=== PATIENT | female | born 1990 | race Caucasian/White ===

== ENCOUNTER 2017-05-27 19:43 | Inpatient (IN) | payer MEDICAID, OTHER ==
[2017-05-27] MEDS ORDERED: Sodium Chloride 0.9% 1,000 ML IV STA ×2 (20:00→20:34)
[2017-05-27] MEDS ORDERED: Azithromycin 500MG/NS 250ml 500 MG/250 ML BAG IVPB STA (20:02)
[2017-05-27] MEDS ORDERED: cefTRIAXone 1 gm 1 GM/100 ML BAG IVPB STA (20:05)
--- NOTE | 2017-05-27 20:05 | ED PDOC ---
Arrival/HPI <Henry Hatfield - Last Filed: 05/27/17 21:07> <Darrick Patterson - Last Filed: 05/27/17 23:03> - General Chief Complaint: Shortness Of Breath Time Seen by Provider: 05/27/17 19:45 - History of Present Illness Narrative History of Present Illness (Text): CC: shortness of breath, cough, fever x 1wk This patient is a 26yo F w/ no PMD who is coming to the Emergency department w/ chest pain, shortness of breath, cough with productive sputum with sick contacts in her family with a cough as well, for one week. The patient states she vomited one time last night after she ate, but has had no diarrhea. She has substernal chest pain, with cough, that does not radiate anywhere. This has never happened to her before. She has not traveled anywhere recently, no long flights/bus rides, and has no history of DVT/PE. She takes no medication. The last time she saw a doctor was when she gave last november. Past medical history: denies Meds: Denies FamHx: Father with diabetes; denies cancer/DVT/family hx of clots Allergies: Denies Surg Hx: 3 C-Sections; no adverse events with anesthesia Social: Lives at home with three children, does not work, does not smoke/drink/ no illicit drugs (Darrick Patterson) Past Medical History - Psychiatric Hx Substance Use: No - Surgical History Hx Section: Yes (X3) <Darrick Patterson - Last Filed: 05/27/17 23:03> Family/Social History - Physician Review Nursing Documentation Reviewed: Yes Family/Social History: No Known Family HX Smoking Status: Never Smoked Hx Alcohol Use: No Hx Substance Use: No <Darrick Patterson - Last Filed: 05/27/17 23:03> Allergies/Home Meds <Henry Hatfield - Last Filed: 05/27/17 21:07> <Darrick Patterson - Last Filed: 05/27/17 23:03> Allergies/Adverse Reactions: Allergies No Known Allergies Allergy (Verified 05/27/17 19:50) Home Medications: Home Meds Medication Instructions Recorded Confirmed No Known Home Med 05/27/17 05/27/17 Review of Systems - Review of Systems Systems not reviewed;Unavailable: Unstable Vital Signs Constitutional: Fatigue Eyes: absent: Vision Changes ENT: absent: Hearing Changes Respiratory: SOB, Cough, Sputum. absent: Wheezing Cardiovascular: Chest Pain. absent: Palpitations, Edema, Calf Pain Gastrointestinal: absent: Abdominal Pain, Stool Changes Genitourinary Female: absent: Dysuria, Frequency, Hematuria Musculoskeletal: absent: Arthralgias, Back Pain Skin: absent: Rash, Pruritis Neurological: absent: Headache, Dizziness Endocrine: absent: Diaphoresis Hemo/Lymphatic: absent: Adenopathy Psychiatric: absent: Anxiety, Depression <Darrick Patterson - Last Filed: 05/27/17 23:03> Physical Exam Temperature: Febrile Blood Pressure: Normal Pulse: Tachycardic Respiratory Rate: Normal Appearance: Positive for: Non-Toxic, Ill-Appearing Pain Distress: None Mental Status: Positive for: Alert and Oriented X 3 - Systems Exam Pupils: Present: PERRL Extroacular Muscles: Present: EOMI Conjunctiva: Present: Normal Mouth: Present: Moist Mucous Membranes Neck: Present: Normal Range of Motion Respiratory/Chest: Present: Rales. No: Clear to Auscultation Cardiovascular: Present: Tachycardic. No: Murmurs Abdomen: Present: Distention. No: Tenderness Back: No: CVA Tenderness Upper Extremity: Present: Normal Inspection. No: Cyanosis, Edema Lower Extremity: Present: Normal Inspection. No: Edema Neurological: Present: GCS=15, CN II-XII Intact Skin: Present: Warm, Dry Psychiatric: Present: Alert, Oriented x 3 <Darrick Patterson - Last Filed: 05/27/17 23:03> Vital Signs Temp Pulse Resp BP Pulse Ox 05/27/17 22:14 98.1 F 116 H 22 117/68 97 05/27/17 21:09 101.9 F H 05/27/17 21:05 101.9 F H 115 H 22 125/75 99 05/27/17 20:10 20 98 05/27/17 20:09 103.0 F H 05/27/17 19:50 103 F H 130 H 25 H 132/79 94 L Medical Decision Making - Lab Interpretations I have reviewed the lab results: Yes - EKG Interpretation Interpreted by ED Physician: Yes Type: 12 lead EKG <Henry Hatfield - Last Filed: 05/27/17 21:07> <Darrick Patterson - Last Filed: 05/27/17 23:03> ED Course and Treatment: Impression: Pt seen and evaluated with medical transcription radiology. Pt presented for chest pain, shortness of breath, productive cough, and 1 episode of vomiting. Aware and agree with HPI, clinical findings, plan, and management. Plan: -- CTA Chest -- EKG -- CXR -- Labs, VBG, D-dimer, blood cultures, rapid flu -- IV fluids -- Reassess and disposition (Henry Hatfield) 26yo F w/ fevers/cough/shortness of breath x1wk DD: PNA vs PE vs URI Plan: CBC, CMP, Blood Cult, VBG Lactate, Chest CT PE protocol, D-dimer -SIRS 3/4, fever, tachypneic, HR -give 1g Ceftriaxone, 500mg Azithro -1L NS given, BP stable -Tylenol for fever control EKG shows sinus tach w/ non specific ST/T wave changes; no previous to compare Dispo and reassess 05/27/17 20:11 CBC w/ neutrophilia, no elevated WBC Anemia, hgb 10.1, no obvious signs of bleeding K 3.2; repleted with 40Meq PO Lactate 0.8 Pending PE chest 05/27/17 20:26 Chest portable shows RLL infiltrate Pt meets sepsis criteria; protocol already in place (fever, HR, RR, RLL infiltrate) Still pending PE Protocol Chest 05/27/17 20:41 D-Dimer 400 CT Chest Still pending 05/27/17 22:44 Ct Chest still pending fever has resolved with tylenol patient is more comfortable on reassesment remains tachycardic/tachypneic 05/27/17 22:59 Will admit the patient for PNA Negative for PE Borderline mediastinal lymphadenopathy. The largest lymph node is identified within the right paratracheal position measuring 10 mm in short axis dimension. A rounded focus of soft tissue attenuation is identified within the right breast measuring 23 mm in greatest dimension Findings within the bilateral pulmonary parenchyma suggesting an infectious/ inflammatory etiology, without focal infiltrate. 05/27/17 23:03 Spoke to medical transcription radiology will admit patient to hospitalist service (Darrick Patterson) - Lab Interpretations Lab Results: 05/27/17 20:00 05/27/17 20:00 Lab Results 05/27/17 20:28: Influenza Typ A,B (EIA) Negative for flu a/b 05/27/17 20:00: D-Dimer, Quantitative 400 H 05/27/17 20:00: Sodium 140, Chloride 103, Potassium 3.2 L, Carbon Dioxide 25, Anion Gap 15, BUN 11, Creatinine 0.7, Est GFR ( Amer) > 60, Est GFR (Non- Af Amer) > 60, Random Glucose 98, Calcium 8.9, Total Bilirubin 0.4, AST 50 H, ALT 54, Alkaline Phosphatase 79, Total Protein 8.0, Albumin 4.2, Globulin 3.9, Albumin/Globulin Ratio 1.1 05/27/17 20:00: pO2 37, VBG pH 7.45 H, VBG pCO2 41.0, VBG HCO3 28.5 H, VBG Total CO2 29.8 H, VBG O2 Sat (Calc) 72.6 H, VBG Base Excess 4.1 H, VBG Potassium 3.2 L, Sodium 138.0, Chloride 104.0, Glucose 95, Lactate 0.8, FiO2 21.0, Venous Blood Potassium 3.2 L 05/27/17 20:00: WBC 9.9, RBC 4.76, Hgb 10.7 L, Hct 33.5 L, MCV 70.4 L, MCH 22.5 L, MCHC 31.9, RDW 15.5 H, Plt Count 228, MPV 10.3, Gran % 73.6 H, Lymph % (Auto ) 16.9 L, Nash % (Auto) 4.8, Eos % (Auto) 4.4, Baso % (Auto) 0.3, Gran # 7.30 H , Lymph # 1.7, Nash # 0.5, Eos # 0.4, Baso # 0.03 - RAD Interpretation Radiology Orders: 05/27/17 19:59 ANGIO CHEST PE PROTOCOL [CT] Stat 05/27/17 20:19 CHEST PORTABLE [RAD] Stat - Medication Orders Current Medication Orders: Discontinued Medications Acetaminophen (Tylenol 325mg Tab) 975 mg PO STAT STA Stop: 05/27/17 20:00 Last Admin: 05/27/17 20:09 Dose: 975 mg MAR Pain/Vitals Document 05/27/17 20:09 YP (Rec: 05/27/17 20:09 YP [id number]) Pain Reassessment Is This A Pain ReAssessment? No Sleep Is patient sleeping during reassessment? No Presence of Pain Presence of Pain Yes Vitals Temperature (97.6 F-99.6 F) 103.0 F Temperature Source Oral Re-Assess: MAR Pain/Vitals Document 05/27/17 21:09 YP (Rec: 05/27/17 21:12 YP [id number]) Vitals Temperature (97.6 F-99.6 F) 101.9 F Temperature Source Oral Sodium Chloride (Sodium Chloride 0.9%) 1,000 mls @ 999 mls/hr IV .Q1H1M STA Stop: 05/27/17 21:00 Last Admin: 05/27/17 20:03 Dose: 999 mls/hr eMAR Start Stop Document 05/27/17 20:03 SE (Rec: 05/27/17 20:03 [facility] [id number] Intravenous Solution Start Date 05/27/17 Start Time 20:03 Azithromycin (Zithromax 500mg In Ns) 500 mg in 250 mls @ 167 mls/hr IVPB STAT STA PRN Reason: Protocol Stop: 05/27/17 21:31 Last Admin: 05/27/17 21:12 Dose: 167 mls/hr eMAR Start Stop Document 05/27/17 21:12 YP (Rec: 05/27/17 21:12 YP [id number]) Intravenous Solution Start Date 05/27/17 Start Time 21:12 End Date 05/27/17 End time 22:42 Total Infusion Time 90 Ceftriaxone Sodium (Rocephin 1 Gram Ivpb) 1 gm in 100 mls @ 200 mls/hr IVPB STAT STA PRN Reason: Protocol Stop: 05/27/17 20:34 Last Admin: 05/27/17 20:33 Dose: 200 mls/hr eMAR Start Stop Document 05/27/17 20:33 YP (Rec: 05/27/17 20:33 YP [id number]) Intravenous Solution Start Date 05/27/17 Start Time 20:33 End Date 05/27/17 End time 21:03 Total Infusion Time 30 Sodium Chloride (Sodium Chloride 0.9%) 1,000 mls @ 999 mls/hr IV .Q1H1M STA Stop: 05/27/17 21:34 Last Admin: 05/27/17 20:47 Dose: 999 mls/hr eMAR Start Stop Document 05/27/17 20:47 OCS (Rec: 05/27/17 20:47 OCS [id number]) Intravenous Solution Start Date 05/27/17 Start Time 20:47 Potassium Chloride (K-Dur 20 Meq Er Tab) 40 meq PO STAT STA Stop: 05/27/17 20:16 Last Admin: 05/27/17 20:29 Dose: 40 meq Disposition/Present on Arrival <Henry Hatfield - Last Filed: 05/27/17 21:07> - Present on Arrival Any Indicators Present on Arrival: Yes History of DVT/PE: No History of Uncontrolled Diabetes: No Urinary Catheter: No History of Decub. Ulcer: No History Surgical Site Infection Following: None - Disposition Have Diagnosis and Disposition been Completed?: Yes Disposition Time: 23:03 Patient Plan: Admission <Darrick Patterson - Last Filed: 05/27/17 23:03> - Disposition Diagnosis: Pneumonia Disposition: HOSPITALIZED Condition: FAIR Referrals: PCP,NO [Primary Care Provider] - Follow up with primary Forms: [employer] ([place])
[2017-05-27 20:08] LABS: VENOUS BLOOD GAS BASE EXCESS 4.1 mmol/L (0.0-2.0); VENOUS BLOOD PH 7.45 (7.32-7.43)
[2017-05-27 20:09] LABS: BASO # 0.03 K/mm3 (0.0-2.0); BASO % 0.3 % (0.0-3.0); EOS # 0.4 (0.0-0.7); EOS % 4.4 % (1.5-5.0); GRAN # 7.3 (1.4-6.5); GRAN % 73.6 % (50.0-68.0); HEMATOCRIT 33.5 % (36.0-48.0); LYMPH # 1.7 (1.2-3.4); LYMPH % 16.9 % (22.0-35.0); MEAN CELL VOLUME 70.4 fl (80.0-105.0); MEAN CORPUSCULAR HEMOGLOBIN 22.5 pg (25.0-35.0); MEAN CORPUSCULAR HGB CONC 31.9 g/dl (31.0-37.0); MEAN PLATELET VOLUME 10.3 fl (7.0-11.0); MONO # 0.5 (0.1-0.6); MONO % 4.8 % (1.0-6.0); RED CELL DISTRIBUTION WIDTH 15.5 % (11.5-14.5); WHITE BLOOD COUNT 9.9 10^3/ul (4.5-11.0)
[2017-05-27] MEDS ORDERED: Potassium Chloride 20 mEq ER Tab PO STA (20:15)
[2017-05-27 20:18] LABS: ALB/GLOB RATIO 1.1 (1.1-1.8); ALKALINE PHOSPHATASE 79 U/L (38-126); ALT/SGPT 54 U/L (7-56); AST/SGOT 50 U/L (14-36); BILIRUBIN,TOTAL 0.4 mg/dL (0.2-1.3); BLOOD UREA NITROGEN 11 mg/dL (7-21); CALCIUM 8.9 mg/dL (8.4-10.5); CARBON DIOXIDE 25 mmol/L (21-33); CHLORIDE 103 mmol/L (98-107); GFR AFRICAN-AMERICAN > 60; GLUCOSE,RANDOM 98 mg/dL (70-110); POTASSIUM 3.2 mmol/L (3.6-5.0); SODIUM 140 mmol/L (132-148)
[2017-05-27] MEDS ORDERED: Iodixanol 320 MG/ML 100 ML BOTTLE IV ONE (20:37)
--- NOTE | 2017-05-27 22:57 | CT ---
EXAM: CT Angiography Chest With Intravenous Contrast CLINICAL HISTORY: 26 years old, female; Pain; Chest pain; Additional info: Chest pain SOB TECHNIQUE: Axial computed tomographic angiography images of the chest with intravenous contrast using pulmonary embolism protocol. All CT scans at this facility use one or more dose reduction techniques, viz.: automated exposure control; ma/kV adjustment per patient size (including targeted exams where dose is matched to indication; i.e. head); or iterative reconstruction technique. MIP reconstructed images were created and reviewed. Coronal and sagittal reformatted images were created and reviewed. CONTRAST: 91 mL of VISIPAQUE administered intravenously. COMPARISON: None. Examination is markedly limited secondary to poor bolus timing. FINDINGS: Pulmonary arteries: No large central pulmonary embolism. Aorta: No thoracic aortic aneurysm. Lungs: No mass. Patchy central tree in bud opacification, findings consistent with an infectious/inflammatory etiology. Pleural spaces: No significant effusion. No pneumothorax. Heart: No cardiomegaly. No significant pericardial effusion. No evidence of right heart dysfunction. Bones: No acute fracture. Lymph nodes: Borderline mediastinal lymphadenopathy. The largest lymph node is identified within the right paratracheal position measuring 10 mm in short axis dimension. A rounded focus of soft tissue attenuation is identified within the right breast measuring 23 mm in greatest dimension, for which non-emergent followup with breast ultrasound is recommended, if not already performed. IMPRESSION: No pulmonary embolism. Findings within the bilateral pulmonary parenchyma suggesting an infectious/inflammatory etiology, without focal infiltrate. Findings within the right breast for which nonemergent followup with breast ultrasound is recommended, if not already performed.
[2017-05-28] MEDS ORDERED: Albuterol-Ipratrop 3 mg / 0.5 (3 ml) UD IH STA (00:15)
[2017-05-28] MEDS: Sodium Chloride 0.9% 1,000 ML IV SCH ×3 (00:24→22:25)
--- NOTE | 2017-05-28 00:26 | CP.PCM.HP ---
History of Present Illness - History of Present Illness History of Present Illness: CC: Cough, fevers, and chills This is a 26 year old female with no past medical history who presents to the emergency department complaining of fevers, chills, and productive cough for the past week. The patient reports having one recent contact in the home with her child. The patient reports taking advil and Theraflu but denies any improvement in the symptoms. The patient also reports one episode of non- bilious, non-bloody vomit in conjunction with her symptoms. The patient also reports pleuritic chest pain. The patient denies any abdominal pain, constipation, diarrhea, numbness or tingling in the hands or feet, headache, lightheadedness, dizziness, changes in vision, syncopal episodes, or any other complaints. PMD: None Past medical history: See HPI Medications:None Past surgical history: C-sections (x3), Appendectomy Social history: Patient denies smoking, alcohol consumption or illicit drug use. Family history: Mom(D.M. AND hypertension), Dad (D.M.) Present on Admission - Present on Admission Any Indicators Present on Admission: No Review of Systems - Constitutional Constitutional: Chills, Fever, Lethargy. absent: Daytime Sleepiness, Excessive Sweating, Increased Appetite, Night Sweats, Weight Loss, Weakness - EENT Eyes: absent: Blurred Vision, Change in Vision, Discharge, Dry Eye Ears: absent: Decreased Hearing, Ear Discharge, Dizziness Nose/Mouth/Throat: absent: Nasal Trauma, Nose Pain, Mouth Pain, Sore Throat, Facial Pain, Neck Pain, Neck Mass - Cardiovascular Cardiovascular: absent: Chest Pain at Rest, Diaphoresis, Dyspnea, Irregular Heart Rhythm, Leg Edema, Palpitations, Syncope - Respiratory Respiratory: Cough, Excessive Mucous Production, Pain with Coughing. absent: Hemoptysis, Dyspnea on Exertion, Wheezing - Gastrointestinal Gastrointestinal: Nausea. absent: Abdominal Pain, Bloating, Diarrhea, Melena - Musculoskeletal Musculoskeletal: absent: Abnormal Gait, Muscle Cramps, Muscle Weakness, Myalgias , Neck Pain, Numbness - Integumentary Integumentary: Dry Skin. absent: Changing Lesions, Furuncle, New Lesions, Sores , Swelling, Unusual Bruising, Wounds - Neurological Neurological: absent: Abnormal Hearing, Disequilibrium, Dizziness, Numbness, Headaches, Paresthesias, Vertigo, Weakness - Psychiatric Psychiatric: absent: Change in Appetite, Confusion, Depression, Hopelessness, Memory Loss, Mood Swings, Panic Attacks - Endocrine Endocrine: absent: Cold Intolorance, Excessive Sweating, Flushing, Polydipsia, Polyphagia, Polyuria Past Patient History - Past Social History Smoking Status: Never Smoked - PSYCHIATRIC Hx Substance Use: No - SURGICAL HISTORY Hx Section: Yes (X3) Meds Allergies/Adverse Reactions: Allergies Allergy/AdvReac Type Severity Reaction Status Date / Time No Known Allergies Allergy Verified 05/27/17 19:50 Physical Exam - Head Exam Head Exam: ATRAUMATIC, NORMAL INSPECTION, NORMOCEPHALIC - Eye Exam Eye Exam: EOMI, Normal appearance, PERRL. absent: Periorbital tenderness Pupil Exam: NORMAL ACCOMODATION, PERRL. absent: Irregular, Unequal - ENT Exam ENT Exam: Mucous Membranes Moist, Normal Exam. absent: Normal Oropharynx, TM's Normal Bilaterally - Neck Exam Neck exam: Positive for: Normal Inspection. Negative for: Lymphadenopathy, Meningismus, Thyromegaly - Respiratory Exam Respiratory Exam: Decreased Breath Sounds. absent: Prolonged Expiratory Phase, Rales, Respiratory Distress, Stridor - Cardiovascular Exam Cardiovascular Exam: REGULAR RHYTHM, +S1, +S2. absent: Gallop, Rubs - GI/Abdominal Exam GI & Abdominal Exam: Normal Bowel Sounds, Soft. absent: Diminished Bowel Sounds , Distended, Organomegaly, Tenderness - Extremities Exam Extremities exam: Positive for: full ROM, normal inspection. Negative for: joint swelling, pedal edema, tenderness - Back Exam Back exam: NORMAL INSPECTION. absent: CVA tenderness (L), CVA tenderness (R), paraspinal tenderness - Neurological Exam Neurological exam: Alert, CN II-XII Intact, Normal Gait, Oriented x3 - Psychiatric Exam Psychiatric exam: Normal Affect, Normal Mood - Skin Skin Exam: Dry, Intact, Normal Color Results - Vital Signs Recent Vital Signs: Last Vital Signs Temp 98.1 F 05/27/17 22:14 Pulse 109 H 05/27/17 23:19 Resp 20 05/27/17 23:19 BP 112/71 05/27/17 23:19 Pulse Ox 99 05/27/17 23:19 - Labs Result Diagrams: 05/28/17 07:00 05/28/17 07:00 Labs: Laboratory Results - last 24 hr 05/27/17 05/27/17 05/27/17 20:00 20:00 20:00 WBC 9.9 RBC 4.76 Hgb 10.7 L Hct 33.5 L MCV 70.4 L MCH 22.5 L MCHC 31.9 RDW 15.5 H Plt Count 228 MPV 10.3 Gran % 73.6 H Lymph % (Auto) 16.9 L [place] % (Auto) 4.8 Eos % (Auto) 4.4 Baso % (Auto) 0.3 Gran # 7.30 H Lymph # 1.7 [place] # 0.5 Eos # 0.4 Baso # 0.03 D-Dimer, Quantitative pO2 37 VBG pH 7.45 H VBG pCO2 41.0 VBG HCO3 28.5 H VBG Total CO2 29.8 H VBG O2 Sat (Calc) 72.6 H VBG Base Excess 4.1 H VBG Potassium 3.2 L Sodium 138.0 140 Chloride 104.0 103 Glucose 95 Lactate 0.8 FiO2 21.0 Potassium 3.2 L Carbon Dioxide 25 Anion Gap 15 BUN 11 Creatinine 0.7 Est GFR ( Amer) > 60 Est GFR (Non-Af Amer) > 60 Random Glucose 98 Calcium 8.9 Total Bilirubin 0.4 AST 50 H ALT 54 Alkaline Phosphatase 79 Total Protein 8.0 Albumin 4.2 Globulin 3.9 Albumin/Globulin Ratio 1.1 Venous Blood Potassium 3.2 L Influenza Typ A,B (EIA) 05/27/17 05/27/17 20:00 20:28 WBC RBC Hgb Hct MCV MCH MCHC RDW Plt Count MPV Gran % Lymph % (Auto) [place] % (Auto) Eos % (Auto) Baso % (Auto) Gran # Lymph # [place] # Eos # Baso # D-Dimer, Quantitative 400 H pO2 VBG pH VBG pCO2 VBG HCO3 VBG Total CO2 VBG O2 Sat (Calc) VBG Base Excess VBG Potassium Sodium Chloride Glucose Lactate FiO2 Potassium Carbon Dioxide Anion Gap BUN Creatinine Est GFR ( Amer) Est GFR (Non-Af Amer) Random Glucose Calcium Total Bilirubin AST ALT Alkaline Phosphatase Total Protein Albumin Globulin Albumin/Globulin Ratio Venous Blood Potassium Influenza Typ A,B (EIA) Negative for flu a/b Assessment & Plan - Assessment and Plan (Free Text) Assessment: This is a 26 year old female with no past medical history who is being admitted for CAP. Plan: 1. Community acquired pneumonia( in the setting of SIRS)( versus r/o P.E.) -CXR showed right lower infiltrate -Chest ct ordered after D-dimer result(400) and showed borderline mediastinal lymphadenopathy. Largest lymph node is identified within the right para- tracheal position measuring 10mm in short axis dimension. A rounded focus of soft tissue attenuation identified within the right breast measuring 23mm in greatest dimension. Findings within the bilateral pulmonary parenchyma suggesting an infectious/inflammatory etiology without focal infiltrate. -Patient given 1 gram of Ceftriaxone and 500mg of Azithromycin in the E.D. -Tmax of 103F. Patient given Tylenol in the E.D. Patient a-febrile. -1L NS give in in the E.D. 1 L NS ordered at 125 ml/hr. -Duonebs. -Sputum cultures ordered. Will f/u with results. Blood cultures ordered. Will f /u with results. -Procalcitonin ordered. Will f/u with results. -Pulmonary consulted. Will f/u with rec's. -ID consulted. Will f/u with rec's. 2.Microcytic hypochromic anemia -Per patient history family recently gave to her 3rd child via . -MCV 70.4 upon admission. Hemoglobin 10.7 upon admission. RDW 15.5 upon admission. -Anemia workup ordered. Will f/u with rec's. -Will continue to monitor closely. 3.Hypokalemia -K 3.2 upon admission. Mg and Phos ordered. Will f/u with results. -Will replete as needed. Will closely monitor with serial CMP's. GI ppx -Protonix DVT/PE PPX -Heparin
[2017-05-28] MEDS: Albuterol-Ipratrop 3 mg / 0.5 (3 ml) UD IH SCH ×5 (01:20→20:08)
[2017-05-28 01:27] LABS: ARTERIAL BLOOD GAS HCO3 21.6 mmol/L (21-28); ARTERIAL BLOOD GAS PH 7.41 (7.35-7.45)
[2017-05-28 07:05] VITALS: BMI 29.2
[2017-05-28 07:33] LABS: BASO # 0.03 K/mm3 (0.0-2.0); BASO % 0.3 % (0.0-3.0); EOS # 0.6 (0.0-0.7); EOS % 5.5 % (1.5-5.0); GRAN # 7.09 (1.4-6.5); GRAN % 71.1 % (50.0-68.0); HEMATOCRIT 32.8 % (36.0-48.0); LYMPH # 1.8 (1.2-3.4); LYMPH % 18.4 % (22.0-35.0); MEAN CELL VOLUME 71.1 fl (80.0-105.0); MEAN CORPUSCULAR HEMOGLOBIN 22.3 pg (25.0-35.0); MEAN CORPUSCULAR HGB CONC 31.4 g/dl (31.0-37.0); MEAN PLATELET VOLUME 10.2 fl (7.0-11.0); MONO # 0.5 (0.1-0.6); MONO % 4.7 % (1.0-6.0); RED CELL DISTRIBUTION WIDTH 15.9 % (11.5-14.5)
[2017-05-28 08:03] LABS: IRON 13 ug/dL (45-180)
[2017-05-28 08:06] LABS: ALKALINE PHOSPHATASE 66 U/L (38-126); ALT/SGPT 47 U/L (7-56); AST/SGOT 34 U/L (14-36); BILIRUBIN,TOTAL 0.5 mg/dL (0.2-1.3); BLOOD UREA NITROGEN 6 mg/dL (7-21); CALCIUM 8.1 mg/dL (8.4-10.5); CARBON DIOXIDE 23 mmol/L (21-33); CHLORIDE 111 mmol/L (98-107); GFR AFRICAN-AMERICAN > 60; GLUCOSE,RANDOM 90 mg/dL (70-110); PHOSPHOROUS 2.7 mg/dL (2.5-4.5); POTASSIUM 3.9 mmol/L (3.6-5.0); SODIUM 144 mmol/L (132-148); TOTAL PROTEIN 7.1 g/dL (5.8-8.3)
--- NOTE | 2017-05-28 09:01 | RAD ---
HISTORY: shortness of breat CP COMPARISON: None FINDINGS: LUNGS: A right middle lobe patchy infiltrate is present PLEURA: No significant pleural effusion identified, no pneumothorax apparent. CARDIOVASCULAR: Normal. OSSEOUS STRUCTURES: No significant abnormalities. VISUALIZED UPPER ABDOMEN: Normal. OTHER FINDINGS: None. IMPRESSION: Right middle lobe patchy infiltrate
--- NOTE | 2017-05-28 09:17 | CARD ---
APPROVED REPORT EKG Measurement Heart [id number] <Conclusion> Sinus tachycardia Nonspecific ST and T wave abnormality Abnormal ECG
[2017-05-28] MEDS ORDERED: cefTRIAXone 1 gm 1 GM/100 ML BAG IVPB SCH (10:00)
[2017-05-28] MEDS: cefTRIAXone 1 gm 1 GM/100 ML BAG IVPB SCH (10:05)
[2017-05-28] MEDS: Azithromycin 500MG/NS 250ml 500 MG/250 ML BAG IVPB SCH (10:06)
--- NOTE | 2017-05-28 12:32 | CP.PCM.CON ---
History of Present Illness - History of Present Illness History of Present Illness: 26 year old female with past medical history of C-sections, S/P appendectomy came in to [facility] because of fever, chills and cough which started about a week ago. She states that her older child has cough and an ear infection. She also has associated chest pain on coughing, occasional lightheadedness when coughing, but denies nausea or diarrhea, no dysuria, no sore throat, some mild dyspnea on exertion, has generalized weakness, no abdominal pain, no dysphagia. In the ED, CXR and CT chest were done which showed some tree-in-bud opacities in the lower lobes and borderlines mediastinal adenopathy. Infectious Diseases consult is requested to further evaluate and manage. Patient was born in [place] and migrated many years ago. She does not recall getting a BCG vaccine and does not recall getting a PPD test done. Review of Systems - Review of Systems All systems: reviewed and no additional remarkable complaints except (as per HPI ) Past Patient History - Past Social History Smoking Status: Never Smoked - PSYCHIATRIC Hx Substance Use: No - SURGICAL HISTORY Hx Section: Yes (X3) Meds Allergies/Adverse Reactions: Allergies Allergy/AdvReac Type Severity Reaction Status Date / Time No Known Allergies Allergy Verified 05/27/17 19:50 - Medications Medications: Current Medications Acetaminophen (Tylenol 325mg Tab) 650 mg PO Q4 PRN PRN Reason: Fever >100.4 F Albuterol/Ipratropium (Duoneb 3 Mg/0.5 Mg (3 Ml) Ud) 3 ml IH Q6H JOY Last Admin: 05/28/17 01:20 Dose: 3 ml Heparin Sodium (Porcine) (Heparin) 5,000 units SC Q12 JOY PRN Reason: Protocol Sodium Chloride (Sodium Chloride 0.9%) 1,000 mls @ 125 mls/hr IV .Q8H JOY Last Admin: 05/28/17 00:24 Dose: 125 mls/hr Ceftriaxone Sodium (Rocephin 1 Gram Ivpb) 1 gm in 100 mls @ 100 mls/hr IVPB DAILY JOY PRN Reason: Protocol Azithromycin (Zithromax 500mg In Ns) 500 mg in 250 mls @ 167 mls/hr IVPB DAILY JOY PRN Reason: Protocol Ondansetron HCl (Zofran Inj) 4 mg IVP Q6 PRN PRN Reason: Nausea/Vomiting Pantoprazole Sodium (Protonix Inj) 40 mg IVP DAILY JOY Physical Exam - Constitutional Appears: Other (ill-appearing) - Head Exam Head Exam: NORMAL INSPECTION - ENT Exam ENT Exam: Mucous Membranes Moist - Neck Exam Neck exam: Negative for: Lymphadenopathy, Meningismus - Respiratory Exam Respiratory Exam: Rales (scattered), Wheezes (expiratory) - Cardiovascular Exam Cardiovascular Exam: +S1, +S2 - GI/Abdominal Exam GI & Abdominal Exam: Soft. absent: Tenderness Results - Vital Signs Recent Vital Signs: Last Vital Signs Temp 98.1 F 05/27/17 22:14 Pulse 96 H 05/28/17 01:23 Resp 20 05/28/17 01:23 BP 114/60 05/28/17 01:23 Pulse Ox 97 05/28/17 01:23 - Labs Result Diagrams: 05/28/17 07:00 05/28/17 07:00 Labs: Laboratory Results - last 24 hr 05/28/17 01:24 pCO2 34 L pO2 83.0 HCO3 21.6 ABG pH 7.41 ABG Total CO2 22.6 ABG O2 Saturation 97.8 ABG Base Excess -2.4 L ABG Potassium 3.3 L Sodium 143.0 Chloride 114.0 H Glucose 97 Lactate 0.4 L FiO2 21.0 Arterial Blood Potassium 3.3 L Assessment & Plan - Assessment and Plan (Free Text) Plan: Assessment Consider sepsis due to systemic viral illness with probable bronchiolitis R/O community-acquired pneumonia, R/O TB (less likely) S/P C-sections S/P appendectomy Plan Started patient on Rocephin and Zithromax pending blood cx, sputum cx, PCT, urine Legionella Ag; reviewed CT chest will get sputum AFB as well and isolate for now Discussed with Dr. Walton - started on Tamiflu, RSV tests sent will monitor clinical response and trend fever curve
--- NOTE | 2017-05-28 23:21 | CON ---
DATE: 05/28/2017 HISTORY OF PRESENT ILLNESS: The patient is seen and examined at bedside. This is 26-year-old lady without significant past medical history who presented with 3 days of malaise, fever, productive cough. Of note, she has little kids who had similar symptoms recently within one week of her presentation. No nausea, no vomiting, no diarrhea, no constipation. No weight loss or night sweats. No diabetes symptoms. PAST MEDICAL HISTORY: None. ALLERGIES: NONE. HOME MEDICATIONS: None. REVIEW OF SYSTEMS: Review of 12-organ system other than mentioned in history of present illness is negative. PHYSICAL EXAMINATION: VITAL SIGNS: Temperature 98 (yesterday on presentation T-max was 103), heart rate 91, blood pressure 112/70, respiratory rate 18, oxygen saturation 98% on room air. HEENT: Head and neck atraumatic. LUNGS: Few wheezes bilaterally. HEART: Regular rate and rhythm, S1 and S2 normal. ABDOMEN: Soft, nontender, and nondistended. MUSCULOSKELETAL: No C/C/E. NEUROLOGIC: The patient moves all extremities spontaneously. SKIN: Moist. PSYCHIATRIC: The patient is alert and oriented x3. LABORATORY DATA: WBC 10, hemoglobin 10.3, platelet count 223. Sodium 144, potassium 3.9, chloride 111, carbon dioxide 23, BUN 6, creatinine 0.6, glucose 19, AST 34, ALT 47, lactic acid 0.4. ABG showed 7.41/34/83. MEDICATION: Tylenol p.r.n., DuoNeb every 6 hours, heparin 5000 subcu q.12, ibuprofen p.r.n., Zofran p.r.n., Tamiflu, Protonix, ceftriaxone, azithromycin. CAT scan showed borderline mediastinal lymphadenopathy; however, below 1 cm. No pulmonary embolism, some areas with tree-in-bud opacities and ground-glass opacities. No distinct consolidation or bronchograms. EKG: QTc of 466, no acute ischemic changes. ASSESSMENT AND PLAN: This is a 26-year-old lady who presented with productive cough, fever, malaise, and who was found to have some tree-in-bud opacities and some ground-glass nodules and opacities on the CAT scan. Presentation suggest infectious etiology of her symptoms, to be more precise-viral origin, which in combination of radiographic signs of bronchiolitis, signs of bronchospasm on lung exam in the absence of underlying asthma diagnosis--RSV bronchiolitis is very likely diagnosis. That being said, untill more data available--such as procalcitonin, results of GS of sputum and blood culture, empiric antibiotics appear to be reasonable. As we are in the flu season, I will start tamiflu empirically as well. Even though rapid RSV is very non sensitive, it fairly specific and I will order that. Having high suspicion for viral pneumonia, I will forego steroids at present time, but continue with bronchodilators. Maintain euvolemia, euglycemia and normothermia, 02sat>90 percent. Will follow Addendum: procalcitonin less then 0.15--likely viral infection, would recommend to start peeling off abx, if ID service concur David Walton MD [facility]
[2017-05-29 01:04] LABS: BASO # 0.03 K/mm3 (0.0-2.0); BASO % 0.3 % (0.0-3.0); EOS # 0.4 (0.0-0.7); EOS % 4.8 % (1.5-5.0); GRAN # 5.9 (1.4-6.5); GRAN % 64.4 % (50.0-68.0); HEMATOCRIT 30.4 % (36.0-48.0); LYMPH # 2.4 (1.2-3.4); LYMPH % 26.4 % (22.0-35.0); MEAN CELL VOLUME 71.5 fl (80.0-105.0); MEAN CORPUSCULAR HEMOGLOBIN 21.9 pg (25.0-35.0); MEAN CORPUSCULAR HGB CONC 30.6 g/dl (31.0-37.0); MEAN PLATELET VOLUME 9.8 fl (7.0-11.0); MONO # 0.4 (0.1-0.6); MONO % 4.1 % (1.0-6.0); RED CELL DISTRIBUTION WIDTH 15.8 % (11.5-14.5); WHITE BLOOD COUNT 9.2 10^3/ul (4.5-11.0)
[2017-05-29 01:15] LABS: BLOOD UREA NITROGEN 4 mg/dL (7-21); GLUCOSE,RANDOM 94 mg/dL (70-110)
[2017-05-29 01:16] LABS: ALKALINE PHOSPHATASE 64 U/L (38-126); ALT/SGPT 48 U/L (7-56); AST/SGOT 44 U/L (14-36); BILIRUBIN,TOTAL 0.4 mg/dL (0.2-1.3); CALCIUM 8.1 mg/dL (8.4-10.5); CARBON DIOXIDE 26 mmol/L (21-33); CHLORIDE 108 mmol/L (98-107); GFR AFRICAN-AMERICAN > 60; POTASSIUM 3.8 mmol/L (3.6-5.0); SODIUM 144 mmol/L (132-148); TOTAL PROTEIN 6.9 g/dL (5.8-8.3)
[2017-05-29] MEDS: Albuterol-Ipratrop 3 mg / 0.5 (3 ml) UD IH SCH ×5 (01:38→23:31)
[2017-05-29] MEDS: Sodium Chloride 0.9% 1,000 ML IV SCH ×2 (06:44→17:53)
[2017-05-29] MEDS: cefTRIAXone 1 gm 1 GM/100 ML BAG IVPB SCH (09:30)
[2017-05-29] MEDS: Azithromycin 500MG/NS 250ml 500 MG/250 ML BAG IVPB SCH (09:31)
--- NOTE | 2017-05-29 11:24 | CP.PCM.PN ---
<Emmett Rucker - Last Filed: 05/29/17 13:58> Subjective - Date & Time of Evaluation Date of Evaluation: 05/29/17 Time of Evaluation: 06:00 - Subjective Subjective: Patient was seen and examined bedside. She denied any acute events overnight. She stated her pain from the cough had dacreased. She has also been producing less sputum and it has been clear and thinner than it was yesterday. She was able to tolerate a full liquid diet, and today she was told to have yogurt and and try a soft diet. She denied any chest pain, shortness of breath, abdominal pain, fever, chills, nausea, vomiting, or any other complaints at this time. Objective - Vital Signs/Intake and Output Vital Signs (last 24 hours): Temp Pulse Resp BP Pulse Ox 98.3 F 76 19 121/65 99 05/29/17 07:30 05/29/17 07:30 05/29/17 07:30 05/29/17 07:30 05/29/17 07:30 Intake and Output: 05/29/17 05/29/17 06:59 18:59 Intake Total 3780 Output Total 3 Balance 3777 - Medications Medications: Current Medications Acetaminophen (Tylenol 325mg Tab) 650 mg PO Q4 PRN PRN Reason: Fever >100.4 F Last Admin: 05/28/17 21:41 Dose: 650 mg Albuterol/Ipratropium (Duoneb 3 Mg/0.5 Mg (3 Ml) Ud) 3 ml IH Q6H [facility] Last Admin: 05/29/17 11:14 Dose: 3 ml Heparin Sodium (Porcine) (Heparin) 5,000 units SC Q12 JOY PRN Reason: Protocol Last Admin: 05/29/17 09:30 Dose: 5,000 units Sodium Chloride (Sodium Chloride 0.9%) 1,000 mls @ 125 mls/hr IV .Q8H JOY Last Admin: 05/29/17 06:44 Dose: 125 mls/hr Ceftriaxone Sodium (Rocephin 1 Gram Ivpb) 1 gm in 100 mls @ 100 mls/hr IVPB DAILY JOY PRN Reason: Protocol Last Admin: 05/29/17 09:30 Dose: 100 mls/hr Azithromycin (Zithromax 500mg In Ns) 500 mg in 250 mls @ 167 mls/hr IVPB DAILY JOY PRN Reason: Protocol Last Admin: 05/29/17 09:31 Dose: 167 mls/hr Ibuprofen (Motrin Tab) 400 mg PO Q6H PRN PRN Reason: Pain, moderate (4-7) Last Admin: 05/29/17 06:06 Dose: 400 mg Ondansetron HCl (Zofran Inj) 4 mg IVP Q6 PRN PRN Reason: Nausea/Vomiting Oseltamivir Phosphate (Tamiflu Cap) 75 mg PO BID JOY PRN Reason: Protocol Stop: 06/02/17 10:56 Last Admin: 05/29/17 09:33 Dose: 75 mg Pantoprazole Sodium (Protonix Inj) 40 mg IVP DAILY JOY Last Admin: 05/29/17 09:30 Dose: 40 mg - Labs Labs: 05/29/17 00:50 05/29/17 00:50 - Constitutional Appears: Non-toxic, No Acute Distress - Head Exam Head Exam: ATRAUMATIC, NORMAL INSPECTION, NORMOCEPHALIC - Eye Exam Eye Exam: EOMI, Normal appearance, PERRL - ENT Exam ENT Exam: Mucous Membranes Moist, Normal Exam - Neck Exam Neck Exam: Full ROM, Normal Inspection - Respiratory Exam Respiratory Exam: Rhonchi, NORMAL BREATHING PATTERN - Cardiovascular Exam Cardiovascular Exam: REGULAR RHYTHM, +S1, +S2 - GI/Abdominal Exam GI & Abdominal Exam: absent: Tenderness - Extremities Exam Extremities Exam: Normal Capillary Refill, Normal Inspection. absent: Pedal Edema - Neurological Exam Neurological Exam: Alert, Awake, Oriented x3 - Psychiatric Exam Psychiatric exam: Normal Affect - Skin Skin Exam: Normal Color, Warm Assessment and Plan - Assessment and Plan (Free Text) Assessment: This is a 26 year old female with no past medical history who is being admitted for possible CAP. She is being monitored and worked up. Plan: 1. Community acquired pneumonia( in the setting of SIRS)( versus r/o P.E.) -CXR showed right lower infiltrate -Chest ct ordered after D-dimer result(400) and showed borderline mediastinal lymphadenopathy. Largest lymph node is identified within the right para- tracheal position measuring 10mm in short axis dimension. A rounded focus of soft tissue attenuation identified within the right breast measuring 23mm in greatest dimension. Findings within the bilateral pulmonary parenchyma suggesting an infectious/inflammatory etiology without focal infiltrate. -Patient given 1 gram of Ceftriaxone and 500mg of Azithromycin in the E.D. -Tmax of 103F. Patient given Tylenol in the E.D. Patient a-febrile currently, T : 98.5 -1L NS give in in the E.D. 1 L NS ordered at 125 ml/hr. -Duonebs continue -Sputum cultures PENDING -Blood cultures NO GROWTH -Rapid Influenza: NEGATIVE -Legionella antigen NEGATIVE -Procalcitonin : 0.05 -Pulmonary consulted. Will f/u with recs -ID consulted. Will f/u with recs. will d/c Rocephin and continue Zithromax day 2. Obtain sputum AFB as well and isolate for now. Discussed with Dr. Walton - continue Tamiflu day 2, RSV tests sent. will monitor clinical response and trend fever curve -Follow up Sputum AFB, first negative -Follow up RSV -HIV ordered -Quantiferon ordered -Airborne Precautions -ESR: 78 -CRP 15.00 2. Microcytic hypochromic anemia -Per patient history family recently gave to her 3rd child via . -MCV 70.4 upon admission. Hemoglobin 10.7 upon admission. RDW 15.5 upon admission. Hgb 9.3 now -Anemia workup ordered -Ferritin: 48, Iron: 13 TIBC: 270 -Will continue to monitor closely. 3. Hypokalemia -K 3.2 upon admission. Mg and Phos ordered. Will f/u with results. K 3.8 now -Will replete as needed. Will closely monitor with serial CMP's. 4. GI ppx -Protonix 5. DVT/PE PPX -Heparin <Domenico Gaytan - Last Filed: 05/29/17 16:36> Objective - Vital Signs/Intake and Output Vital Signs (last 24 hours): Temp Pulse Resp BP Pulse Ox 98.3 F 76 19 121/65 99 05/29/17 07:30 05/29/17 07:30 05/29/17 07:30 05/29/17 07:30 05/29/17 07:30 Intake and Output: 05/29/17 05/29/17 06:59 18:59 Intake Total 1140 Balance 1140 - Medications Medications: Current Medications Acetaminophen (Tylenol 325mg Tab) 650 mg PO Q4 PRN PRN Reason: Fever >100.4 F Last Admin: 05/28/17 21:41 Dose: 650 mg Albuterol/Ipratropium (Duoneb 3 Mg/0.5 Mg (3 Ml) Ud) 3 ml IH Q6H [facility] Last Admin: 05/29/17 13:51 Dose: 3 ml Heparin Sodium (Porcine) (Heparin) 5,000 units SC Q12 JOY PRN Reason: Protocol Last Admin: 05/29/17 09:30 Dose: 5,000 units Sodium Chloride (Sodium Chloride 0.9%) 1,000 mls @ 125 mls/hr IV .Q8H [facility] Last Admin: 05/29/17 06:44 Dose: 125 mls/hr Azithromycin (Zithromax 500mg In Ns) 500 mg in 250 mls @ 167 mls/hr IVPB DAILY JOY PRN Reason: Protocol Last Admin: 05/29/17 09:31 Dose: 167 mls/hr Ibuprofen (Motrin Tab) 400 mg PO Q6H PRN PRN Reason: Pain, moderate (4-7) Last Admin: 05/29/17 06:06 Dose: 400 mg Ondansetron HCl (Zofran Inj) 4 mg IVP Q6 PRN PRN Reason: Nausea/Vomiting Oseltamivir Phosphate (Tamiflu Cap) 75 mg PO BID JOY PRN Reason: Protocol Stop: 06/02/17 10:56 Last Admin: 05/29/17 09:33 Dose: 75 mg Pantoprazole Sodium (Protonix Inj) 40 mg IVP DAILY [facility] Last Admin: 05/29/17 09:30 Dose: 40 mg Attending/Attestation - Attestation I have personally seen and examined this patient.: Yes I have fully participated in the care of the patient.: Yes I have reviewed all pertinent clinical information, including history, physical exam and plan: Yes Notes (Text): I have seen and examined the patient at bedside. Agree with the above note with the following additions/ exceptions: Briefly this is 26 year old female with no past medical history who was admitted 1 day ago for evaluation of cough, sputum production, pleuritic chest pain, bronchospasm, borderline mediastinal adenopathy, bud and tree appearance suggestive of bronchiolitis / CAP. Blood cultures negative. Procal low. Discussed with ID. Plan to dc rocephin and continue zithro. Influenza and legionella negative. AFB smears pending. No recent travel to [place]. No known exposure to TB. She has iron deficiency anemia. Will start po iron. Upon discharge patient will follow up with PMD of choice. Dr Domenico Gaytan
--- NOTE | 2017-05-29 13:30 | CP.PCM.PN ---
Subjective - Date & Time of Evaluation Date of Evaluation: 05/29/17 Time of Evaluation: 11:35 - Subjective Subjective: Feeling better, less cough, no fevers overnight, more appetite today. Objective - Vital Signs/Intake and Output Vital Signs (last 24 hours): Temp Pulse Resp BP Pulse Ox 98.3 F 76 19 121/65 99 05/29/17 07:30 05/29/17 07:30 05/29/17 07:30 05/29/17 07:30 05/29/17 07:30 - Medications Medications: Current Medications Acetaminophen (Tylenol 325mg Tab) 650 mg PO Q4 PRN PRN Reason: Fever >100.4 F Last Admin: 05/28/17 21:41 Dose: 650 mg Albuterol/Ipratropium (Duoneb 3 Mg/0.5 Mg (3 Ml) Ud) 3 ml IH Q6H [facility] Last Admin: 05/29/17 11:14 Dose: 3 ml Heparin Sodium (Porcine) (Heparin) 5,000 units SC Q12 JOY PRN Reason: Protocol Last Admin: 05/29/17 09:30 Dose: 5,000 units Sodium Chloride (Sodium Chloride 0.9%) 1,000 mls @ 125 mls/hr IV .Q8H [facility] Last Admin: 05/29/17 06:44 Dose: 125 mls/hr Ceftriaxone Sodium (Rocephin 1 Gram Ivpb) 1 gm in 100 mls @ 100 mls/hr IVPB DAILY JOY PRN Reason: Protocol Last Admin: 05/29/17 09:30 Dose: 100 mls/hr Azithromycin (Zithromax 500mg In Ns) 500 mg in 250 mls @ 167 mls/hr IVPB DAILY JOY PRN Reason: Protocol Last Admin: 05/29/17 09:31 Dose: 167 mls/hr Ibuprofen (Motrin Tab) 400 mg PO Q6H PRN PRN Reason: Pain, moderate (4-7) Last Admin: 05/29/17 06:06 Dose: 400 mg Ondansetron HCl (Zofran Inj) 4 mg IVP Q6 PRN PRN Reason: Nausea/Vomiting Oseltamivir Phosphate (Tamiflu Cap) 75 mg PO BID JOY PRN Reason: Protocol Stop: 06/02/17 10:56 Last Admin: 05/29/17 09:33 Dose: 75 mg Pantoprazole Sodium (Protonix Inj) 40 mg IVP DAILY [facility]Y Last Admin: 05/29/17 09:30 Dose: 40 mg - Constitutional Appears: Non-toxic - Head Exam Head Exam: NORMAL INSPECTION - ENT Exam ENT Exam: Mucous Membranes Moist - Neck Exam Neck Exam: absent: Lymphadenopathy, Meningismus - Respiratory Exam Respiratory Exam: Decreased Breath Sounds. absent: Rales - Cardiovascular Exam Cardiovascular Exam: +S1, +S2 - GI/Abdominal Exam GI & Abdominal Exam: Soft. absent: Tenderness Assessment and Plan - Assessment and Plan (Free Text) Plan: Assessment Consider sepsis due to systemic viral illness with probable bronchiolitis R/O community-acquired pneumonia, atpyical ; R/O TB (less likely) S/P C-sections S/P appendectomy Plan will d/c Rocephin and continue Zithromax day 2; blood cx are negative; follow up sputum cx; PCT is less than 0.05, urine Legionella Ag is negative; reviewed CT chest follow up sputum AFB as well and isolate for now Discussed with Dr. Walton - continue Tamiflu day 2, RSV tests sent will monitor clinical response and trend fever curve
--- NOTE | 2017-05-29 14:55 | PN ---
DATE: 05/29/2017 SUBJECTIVE: The patient is seen and examined at the bedside. Her cough improved. She misses her kids at home ;however, otherwise she is doing better. She is afebrile for 24 hours and afebrile now. PHYSICAL EXAMINATION: VITAL SIGNS: Temperature 98.3, blood pressure 121/65, heart rate 76, respiratory rate 19, oxygen saturation 99% on room air. ENT, HEAD AND NECK: Atraumatic. LUNGS: Clear to auscultation bilaterally. No wheezes. HEART: Regular rate and rhythm. S1 and S2 normal. ABDOMEN: Soft, nontender, and nondistended. MUSCULOSKELETAL: No C/C/E. NEUROLOGIC: The patient moves all extremities spontaneously. SKIN: Moist. PSYCHIATRIC: The patient is alert and oriented x3. LABORATORY DATA: WBC 9.2, hemoglobin 9.3, platelet count 205. Sodium 144, potassium 3.8, chloride 108, carbon dioxide 26, BUN 4, creatinine 0.7, glucose 94, AST 44, ALT 48, CRP more than 15. Procalcitonin less than 0.05. Legionella urine antigen negative. Rapid Flu test negative. RSV still pending. Blood culture is negative. Sputum GS showed few Gram-positive cocci and cluster, few PMNs. ASSESSMENT AND PLAN: This is a 26-year-old lady what appears to be RSV bronchiolitis. Her procalcitonin level is less than 0.05. She is afebrile for more than 24 hours and does not have leukocytosis. Gram-positive cocci in the sputum most likely represent colonization of oral monica. Blood cultures are negative. At present time, I would recommend to peel off antibiotics and will stop ceftriaxone if ID service concurred. We may continue Zithromax mostly for its antiinflammatory and immunomodulatory properties in the setting of bronchiolitis. I will continue bronchodilators and will avoid steroids at present time. Pulmonary toilet, chest PT, IS. I would also treat her symptomatically with anti-tussive's. I will continue to target euvolemia, glycemia, normothermia and oxygen saturation more than 90%.. No nausea, no vomiting. The patient has adequate oral hydration and nutrition capability. She ate her breakfast. We will continue with DVT and GI prophylaxis. David Walton MD [facility]
[2017-05-30] MEDS: Sodium Chloride 0.9% 1,000 ML IV SCH ×2 (01:18→09:22)
[2017-05-30] MEDS: guaiFENesin 100 mg/5 ml Syrup UD PO PRN ×2 (04:27→10:39)
[2017-05-30 06:49] VITALS: RESP 20
[2017-05-30 07:28] LABS: BASO # 0.03 K/mm3 (0.0-2.0); BASO % 0.4 % (0.0-3.0); EOS # 0.6 (0.0-0.7); EOS % 6.9 % (1.5-5.0); GRAN # 4.95 (1.4-6.5); GRAN % 62.5 % (50.0-68.0); HEMATOCRIT 29.8 % (36.0-48.0); LYMPH % 25.3 % (22.0-35.0); MEAN CELL VOLUME 71.8 fl (80.0-105.0); MEAN CORPUSCULAR HEMOGLOBIN 22.2 pg (25.0-35.0); MEAN CORPUSCULAR HGB CONC 30.9 g/dl (31.0-37.0); MONO # 0.4 (0.1-0.6); MONO % 4.9 % (1.0-6.0); RED CELL DISTRIBUTION WIDTH 15.8 % (11.5-14.5); WHITE BLOOD COUNT 7.9 10^3/ul (4.5-11.0)
[2017-05-30 07:43] LABS: ALB/GLOB RATIO 1.1 (1.1-1.8); ALKALINE PHOSPHATASE 60 U/L (38-126); ALT/SGPT 41 U/L (7-56); AST/SGOT 31 U/L (14-36); BILIRUBIN,TOTAL 0.4 mg/dL (0.2-1.3); BLOOD UREA NITROGEN 7 mg/dL (7-21); CALCIUM 8.6 mg/dL (8.4-10.5); CARBON DIOXIDE 25 mmol/L (21-33); CHLORIDE 110 mmol/L (98-107); GFR AFRICAN-AMERICAN > 60; GLUCOSE,RANDOM 85 mg/dL (70-110); POTASSIUM 4.2 mmol/L (3.6-5.0); SODIUM 145 mmol/L (132-148)
[2017-05-30] MEDS: Albuterol-Ipratrop 3 mg / 0.5 (3 ml) UD IH SCH (07:57)
[2017-05-30 08:41] VITALS: BP 132/68; PULSE 50; TEMP 98.4; O2SAT 98
[2017-05-30] MEDS: Azithromycin 500MG/NS 250ml 500 MG/250 ML BAG IVPB SCH (09:20)
--- NOTE | 2017-05-30 11:26 | CP.PCM.DIS ---
<Emmett Rucker - Last Filed: 05/30/17 13:06> Provider - Provider Date of Admission: 05/29/17 11:32 Attending physician: Domenico Gaytan MD Primary care physician: NO PRIMARY CARE PROVIDER Consults: ID: Dr. Vizcaino Pulm: Dr. Mancilla Time Spent in preparation of Discharge (in minutes): 70 Hospital Course - Lab Results Lab Results: Micro Results 05/29/17 12:00 Sputum Gram Stain - Final Most Recent Lab Values WBC 7.9 10^3/ul (4.5-11.0) 05/30/17 07:24 RBC 4.15 10^6/uL (3.5-6.1) 05/30/17 07:24 Hgb 9.2 g/dL (12.0-16.0) L 05/30/17 07:24 Hct 29.8 % (36.0-48.0) L 05/30/17 07:24 MCV 71.8 fl (80.0-105.0) L 05/30/17 07:24 MCH 22.2 pg (25.0-35.0) L 05/30/17 07:24 MCHC 30.9 g/dl (31.0-37.0) L 05/30/17 07:24 RDW 15.8 % (11.5-14.5) H 05/30/17 07:24 Plt Count 226 10^3/uL (120.0-450.0) 05/30/17 07:24 MPV 10.0 fl (7.0-11.0) 05/30/17 07:24 Gran % 62.5 % (50.0-68.0) 05/30/17 07:24 Lymph % (Auto) 25.3 % (22.0-35.0) 05/30/17 07:24 [place] % (Auto) 4.9 % (1.0-6.0) 05/30/17 07:24 Eos % (Auto) 6.9 % (1.5-5.0) H 05/30/17 07:24 Baso % (Auto) 0.4 % (0.0-3.0) 05/30/17 07:24 Gran # 4.95 (1.4-6.5) 05/30/17 07:24 Lymph # 2.0 (1.2-3.4) 05/30/17 07:24 [place] # 0.4 (0.1-0.6) 05/30/17 07:24 Eos # 0.6 (0.0-0.7) 05/30/17 07:24 Baso # 0.03 K/mm3 (0.0-2.0) 05/30/17 07:24 ESR 78 mm/hr (0.0-20.0) H 05/28/17 07:00 D-Dimer, Quantitative 400 ng/mL (0-243) H 05/27/17 20:00 pCO2 34 mm/Hg (35-45) L 05/28/17 01:24 pO2 83.0 mm/Hg (80-100) 05/28/17 01:24 HCO3 21.6 mmol/L (21-28) 05/28/17 01:24 ABG pH 7.41 (7.35-7.45) 05/28/17 01:24 ABG Total CO2 22.6 mmol.L (22-28) 05/28/17 01:24 ABG O2 Saturation 97.8 % (95-98) 05/28/17 01:24 ABG Base Excess -2.4 mmol/L (-2.0-3.0) L 05/28/17 01:24 ABG Potassium 3.3 mmol/L (3.6-5.2) L 05/28/17 01:24 VBG pH 7.45 (7.32-7.43) H 05/27/17 20:00 VBG pCO2 41.0 (40-60) 05/27/17 20:00 VBG HCO3 28.5 mmol/l (21-28) H 05/27/17 20:00 VBG Total CO2 29.8 mmol.L (22-28) H 05/27/17 20:00 VBG O2 Sat (Calc) 72.6 % (40-65) H 05/27/17 20:00 VBG Base Excess 4.1 mmol/L (0.0-2.0) H 05/27/17 20:00 VBG Potassium 3.2 mmol/L (3.6-5.2) L 05/27/17 20:00 Sodium 143.0 mmol/L (132-148) 05/28/17 01:24 Chloride 114.0 mmol/L (98-107) H 05/28/17 01:24 Glucose 97 mg/dl (65-105) 05/28/17 01:24 Lactate 0.4 mmol/L (0.7-2.1) L 05/28/17 01:24 FiO2 21.0 % 05/28/17 01:24 Sodium 145 mmol/L (132-148) 05/30/17 07:24 Potassium 4.2 mmol/L (3.6-5.0) 05/30/17 07:24 Chloride 110 mmol/L (98-107) H 05/30/17 07:24 Carbon Dioxide 25 mmol/L (21-33) 05/30/17 07:24 Anion Gap 14 (10-20) 05/30/17 07:24 BUN 7 mg/dL (7-21) 05/30/17 07:24 Creatinine 0.7 mg/dL (0.7-1.2) 05/30/17 07:24 Est GFR ( Amer) > 60 05/30/17 07:24 Est GFR (Non-Af Amer) > 60 05/30/17 07:24 Random Glucose 85 mg/dL (70-110) 05/30/17 07:24 Calcium 8.6 mg/dL (8.4-10.5) 05/30/17 07:24 Phosphorus 2.7 mg/dL (2.5-4.5) 05/28/17 07:00 Magnesium 2.0 mg/dL (1.7-2.2) 05/28/17 07:00 Iron 13 ug/dL (45-180) L 05/28/17 07:00 TIBC 290 ug/dL (265-497) 05/28/17 07:00 % Saturation 4 % (20-55) L 05/28/17 07:00 Ferritin 48.0 ng/mL 05/28/17 07:00 Total Bilirubin 0.4 mg/dL (0.2-1.3) 05/30/17 07:24 AST 31 U/L (14-36) 05/30/17 07:24 ALT 41 U/L (7-56) 05/30/17 07:24 Alkaline Phosphatase 60 U/L (38-126) 05/30/17 07:24 C-React Prot High Sens > 15.00 mg/L (1.00-3.00) H 05/28/17 08:30 Total Protein 7.0 g/dL (5.8-8.3) 05/30/17 07:24 Albumin 3.6 g/dL (3.0-4.8) 05/30/17 07:24 Globulin 3.4 gm/dL 05/30/17 07:24 Albumin/Globulin Ratio 1.1 (1.1-1.8) 05/30/17 07:24 Angiotensin Convert Enz 27 U/L (9-67) 05/28/17 05:00 Procalcitonin < 0.05 NG/ML (0.19-0.49) L 05/28/17 06:44 Arterial Blood Potassium 3.3 mmol/L (3.6-5.2) L 05/28/17 01:24 Venous Blood Potassium 3.2 mmol/L (3.6-5.2) L 05/27/17 20:00 HIV 1&2 Ag/Ab, 4th Gen Nonreactive (Nonreactive) 05/28/17 10:40 Influenza Typ A,B (EIA) Negative for flu a/b (NEGATIVE) 05/27/17 20:28 Ur L.pneumophila Ag Negative (NEGATIVE) 05/28/17 08:30 TB Test (QFT) Nil 0.14 IU/mL 05/28/17 10:40 TB Test Mitogen - Nil 9.00 IU/mL 05/28/17 10:40 TB Test TB - Nil <0.00 IU/mL 05/28/17 10:40 TB Test (QFT) Negative (Negative) 05/28/17 10:40 - Hospital Course Hospital Course: This is a 26 year old female with no past medical history who was admitted for URI possible secondary to pneumonia v RSV v flu. She was being monitored and worked up. She presented fitting SIRS criteria. CXRay was done and chest CT was ordered and obtained. Patient given 1 gram of Ceftriaxone and 500mg of Azithromycin in the E.D. Tylenol was given for fever and fever subsided. Duonebs were started. Sputum and blood cultures were ordered. Blood cultures were negative, sputum cultures included possible oral monica. Legionella, HIV, and influenza tests all came back negative. Procalictonin was ordered. Pulmonary was consulted. ID was consulted, patient was given appropriate antibiotic treatment and told to continue azithromycin on discharge. Sputum samples were obtained for TB, and came back negative 3 times. Patient presented with anemia, so anemia work up was ordered. She was found to have iron deficiency anemia and instructed to started iron daily. Patient also was hypokalmia on admission, and her K was followed and repleted. The patient improved clinically during the course of her stay, and was discharge on antibiotics, iron , stool softener and medicine for cough. Patient understood the plan, and all medications that needed to be taken. Discharge Exam - Head Exam Head Exam: ATRAUMATIC, NORMAL INSPECTION, NORMOCEPHALIC - Eye Exam Eye Exam: EOMI, Normal appearance, PERRL Pupil Exam: NORMAL ACCOMODATION, PERRL - ENT Exam ENT Exam: Mucous Membranes Moist - Respiratory Exam Respiratory Exam: Clear to PA & Lateral, NORMAL BREATHING PATTERN - Cardiovascular Exam Cardiovascular Exam: REGULAR RHYTHM, +S1, +S2 - GI/Abdominal Exam GI & Abdominal Exam: Unremarkable - Extremities Exam Extremities exam: normal inspection - Neurological Exam Neurological exam: Alert, Oriented x3 - Psychiatric Exam Psychiatric exam: Normal Affect, Normal Mood - Skin Skin Exam: Normal Color, Warm Discharge Plan - Discharge Medications Prescriptions: RX: Azithromycin 250 mg PO DAILY #2 tablet Benzonatate [Tessalon Perles] 100 mg PO TID PRN #30 sgl PRN Reason: Cough Docusate Sodium [Colace] 100 mg PO TID #90 capsule RX: Ferrous Sulfate 325 mg PO TID #90 tablet - Follow Up Plan Condition: FAIR Disposition: HOME/ ROUTINE Instructions: Tuberculosis (GEN), Pneumococcal Vaccine for Adults (DC), Influenza Vaccine (DC), Regular Diet (GEN) Additional Instructions: Please take antibiotic zithromax for 2 more days. Also start taking ferrous sulfate 325 three times a day with the docusate 3 times a day as well. If constipation occurs, consider using miralax over the counter from pharmacy. Please also take tessalon perles three times a day for the next couple of days until cough goes away. Referrals: PCP,NO [Primary Care Provider] - <Domenico Gaytan - Last Filed: 05/30/17 16:02> Provider - Provider Date of Admission: 05/29/17 11:32 Attending physician: Domenico Gaytan MD Primary care physician: NO PRIMARY CARE PROVIDER Hospital Course - Lab Results Lab Results: Micro Results 05/29/17 12:00 Other: Please Indicate Mycobacterial Culture - Preliminary 05/29/17 12:00 Sputum Gram Stain - Final Most Recent Lab Values WBC 7.9 10^3/ul (4.5-11.0) 05/30/17 07:24 RBC 4.15 10^6/uL (3.5-6.1) 05/30/17 07:24 Hgb 9.2 g/dL (12.0-16.0) L 05/30/17 07:24 Hct 29.8 % (36.0-48.0) L 05/30/17 07:24 MCV 71.8 fl (80.0-105.0) L 05/30/17 07:24 MCH 22.2 pg (25.0-35.0) L 05/30/17 07:24 MCHC 30.9 g/dl (31.0-37.0) L 05/30/17 07:24 RDW 15.8 % (11.5-14.5) H 05/30/17 07:24 Plt Count 226 10^3/uL (120.0-450.0) 05/30/17 07:24 MPV 10.0 fl (7.0-11.0) 05/30/17 07:24 Gran % 62.5 % (50.0-68.0) 05/30/17 07:24 Lymph % (Auto) 25.3 % (22.0-35.0) 05/30/17 07:24 [place] % (Auto) 4.9 % (1.0-6.0) 05/30/17 07:24 Eos % (Auto) 6.9 % (1.5-5.0) H 05/30/17 07:24 Baso % (Auto) 0.4 % (0.0-3.0) 05/30/17 07:24 Gran # 4.95 (1.4-6.5) 05/30/17 07:24 Lymph # 2.0 (1.2-3.4) 05/30/17 07:24 [place] # 0.4 (0.1-0.6) 05/30/17 07:24 Eos # 0.6 (0.0-0.7) 05/30/17 07:24 Baso # 0.03 K/mm3 (0.0-2.0) 05/30/17 07:24 ESR 78 mm/hr (0.0-20.0) H 05/28/17 07:00 D-Dimer, Quantitative 400 ng/mL (0-243) H 05/27/17 20:00 pCO2 34 mm/Hg (35-45) L 05/28/17 01:24 pO2 83.0 mm/Hg (80-100) 05/28/17 01:24 HCO3 21.6 mmol/L (21-28) 05/28/17 01:24 ABG pH 7.41 (7.35-7.45) 05/28/17 01:24 ABG Total CO2 22.6 mmol.L (22-28) 05/28/17 01:24 ABG O2 Saturation 97.8 % (95-98) 05/28/17 01:24 ABG Base Excess -2.4 mmol/L (-2.0-3.0) L 05/28/17 01:24 ABG Potassium 3.3 mmol/L (3.6-5.2) L 05/28/17 01:24 VBG pH 7.45 (7.32-7.43) H 05/27/17 20:00 VBG pCO2 41.0 (40-60) 05/27/17 20:00 VBG HCO3 28.5 mmol/l (21-28) H 05/27/17 20:00 VBG Total CO2 29.8 mmol.L (22-28) H 05/27/17 20:00 VBG O2 Sat (Calc) 72.6 % (40-65) H 05/27/17 20:00 VBG Base Excess 4.1 mmol/L (0.0-2.0) H 05/27/17 20:00 VBG Potassium 3.2 mmol/L (3.6-5.2) L 05/27/17 20:00 Sodium 143.0 mmol/L (132-148) 05/28/17 01:24 Chloride 114.0 mmol/L (98-107) H 05/28/17 01:24 Glucose 97 mg/dl (65-105) 05/28/17 01:24 Lactate 0.4 mmol/L (0.7-2.1) L 05/28/17 01:24 FiO2 21.0 % 05/28/17 01:24 Sodium 145 mmol/L (132-148) 05/30/17 07:24 Potassium 4.2 mmol/L (3.6-5.0) 05/30/17 07:24 Chloride 110 mmol/L (98-107) H 05/30/17 07:24 Carbon Dioxide 25 mmol/L (21-33) 05/30/17 07:24 Anion Gap 14 (10-20) 05/30/17 07:24 BUN 7 mg/dL (7-21) 05/30/17 07:24 Creatinine 0.7 mg/dL (0.7-1.2) 05/30/17 07:24 Est GFR ( Amer) > 60 05/30/17 07:24 Est GFR (Non-Af Amer) > 60 05/30/17 07:24 Random Glucose 85 mg/dL (70-110) 05/30/17 07:24 Calcium 8.6 mg/dL (8.4-10.5) 05/30/17 07:24 Phosphorus 2.7 mg/dL (2.5-4.5) 05/28/17 07:00 Magnesium 2.0 mg/dL (1.7-2.2) 05/28/17 07:00 Iron 13 ug/dL (45-180) L 05/28/17 07:00 TIBC 290 ug/dL (265-497) 05/28/17 07:00 % Saturation 4 % (20-55) L 05/28/17 07:00 Ferritin 48.0 ng/mL 05/28/17 07:00 Total Bilirubin 0.4 mg/dL (0.2-1.3) 05/30/17 07:24 AST 31 U/L (14-36) 05/30/17 07:24 ALT 41 U/L (7-56) 05/30/17 07:24 Alkaline Phosphatase 60 U/L (38-126) 05/30/17 07:24 C-React Prot High Sens > 15.00 mg/L (1.00-3.00) H 05/28/17 08:30 Total Protein 7.0 g/dL (5.8-8.3) 05/30/17 07:24 Albumin 3.6 g/dL (3.0-4.8) 05/30/17 07:24 Globulin 3.4 gm/dL 05/30/17 07:24 Albumin/Globulin Ratio 1.1 (1.1-1.8) 05/30/17 07:24 Angiotensin Convert Enz 27 U/L (9-67) 05/28/17 05:00 Procalcitonin < 0.05 NG/ML (0.19-0.49) L 05/28/17 06:44 Arterial Blood Potassium 3.3 mmol/L (3.6-5.2) L 05/28/17 01:24 Venous Blood Potassium 3.2 mmol/L (3.6-5.2) L 05/27/17 20:00 HIV 1&2 Ag/Ab, 4th Gen Nonreactive (Nonreactive) 05/28/17 10:40 Influenza Typ A,B (EIA) Negative for flu a/b (NEGATIVE) 05/27/17 20:28 Ur L.pneumophila Ag Negative (NEGATIVE) 05/28/17 08:30 TB Test (QFT) Nil 0.14 IU/mL 05/28/17 10:40 TB Test Mitogen - Nil 9.00 IU/mL 05/28/17 10:40 TB Test TB - Nil <0.00 IU/mL 05/28/17 10:40 TB Test (QFT) Negative (Negative) 05/28/17 10:40 Attending/Attestation - Attestation I have personally seen and examined this patient.: Yes I have fully participated in the care of the patient.: Yes I have reviewed all pertinent clinical information, including history, physical exam and plan: Yes Notes (Text): I have seen and examined the patient at bedside. Agree with the above note with the following additions/ exceptions: Briefly this is 26 year old female with no past medical history who was admitted for evaluation of cough, sputum production , pleuritic chest pain, bronchospasm, borderline mediastinal adenopathy, bud and tree appearance suggestive of bronchiolitis / CAP. Blood cultures negative. Procal low. Discussed with ID and pulm. Plan to continue zithro. Influenza and legionella negative. AFB smears negative. No recent travel to [place]. No known exposure to TB. She has iron deficiency anemia. Will start po iron. Patient will follow up with PMD of choice. Dr Domenico Gaytan
--- NOTE | 2017-05-30 13:05 | CP.PCM.PN ---
Subjective - Date & Time of Evaluation Date of Evaluation: 05/30/17 Time of Evaluation: 11:30 - Subjective Subjective: Feels much better, no fevers overnight, much improved cough and breathing. Objective - Vital Signs/Intake and Output Vital Signs (last 24 hours): Temp Pulse Resp BP Pulse Ox 98.4 F 50 L 20 132/68 98 05/30/17 08:40 05/30/17 08:40 05/30/17 08:40 05/30/17 08:40 05/30/17 08:40 Intake and Output: 05/30/17 05/30/17 06:59 18:59 Intake Total 660 Balance 660 - Medications Medications: Current Medications Acetaminophen (Tylenol 325mg Tab) 650 mg PO Q4 PRN PRN Reason: Fever >100.4 F Last Admin: 05/28/17 21:41 Dose: 650 mg Albuterol/Ipratropium (Duoneb 3 Mg/0.5 Mg (3 Ml) Ud) 3 ml IH Q6H [facility] Last Admin: 05/30/17 07:57 Dose: 3 ml Guaifenesin (Robitussin) 100 mg PO Q4H PRN PRN Reason: Cough Last Admin: 05/30/17 04:27 Dose: 100 mg Heparin Sodium (Porcine) (Heparin) 5,000 units SC Q12 JOY PRN Reason: Protocol Last Admin: 05/30/17 09:20 Dose: 5,000 units Sodium Chloride (Sodium Chloride 0.9%) 1,000 mls @ 125 mls/hr IV .Q8H [facility] Last Admin: 05/30/17 09:22 Dose: 125 mls/hr Azithromycin (Zithromax 500mg In Ns) 500 mg in 250 mls @ 167 mls/hr IVPB DAILY JOY PRN Reason: Protocol Last Admin: 05/30/17 09:20 Dose: 167 mls/hr Ibuprofen (Motrin Tab) 400 mg PO Q6H PRN PRN Reason: Pain, moderate (4-7) Last Admin: 05/30/17 04:14 Dose: 400 mg Ondansetron HCl (Zofran Inj) 4 mg IVP Q6 PRN PRN Reason: Nausea/Vomiting Oseltamivir Phosphate (Tamiflu Cap) 75 mg PO BID [facility] PRN Reason: Protocol Stop: 06/02/17 10:56 Last Admin: 05/30/17 09:22 Dose: 75 mg Pantoprazole Sodium (Protonix Inj) 40 mg IVP DAILY JOY Last Admin: 05/30/17 09:19 Dose: 40 mg - Labs Labs: 05/30/17 07:24 05/30/17 07:24 - Constitutional Appears: Non-toxic, No Acute Distress - Head Exam Head Exam: NORMAL INSPECTION - ENT Exam ENT Exam: Mucous Membranes Moist - Neck Exam Neck Exam: absent: Lymphadenopathy, Meningismus - Respiratory Exam Respiratory Exam: absent: Rales - Cardiovascular Exam Cardiovascular Exam: +S1, +S2 - GI/Abdominal Exam GI & Abdominal Exam: Soft. absent: Tenderness Assessment and Plan - Assessment and Plan (Free Text) Plan: Assessment Consider sepsis due to systemic viral illness with probable bronchiolitis R/O community-acquired pneumonia, atpyical ; no evidence of TB S/P C-sections S/P appendectomy Plan continue Zithromax day 3 to complete up to 5 days of therapy; blood cx are negative; PCT is less than 0.05, urine Legionella Ag is negative; reviewed CT chest sputum AFB are negative Discussed with Dr. Walton - continue Tamiflu day 3, RSV tests sent discussed with Dr. Gaytan
== END 2017-05-30 14:00 | disposition home or self-care (01) | DRG 203 ==
LOC: ED 19:43 → ERH 05-28 00:56 → 5RNO 05-28 02:56 → 5RSO 05-28 13:53 → OBSVTOIN 05-29 11:32
PROVIDERS: ADMIT Internal Medicine; ATTEND Hospitalist
DX: J21.9 Acute bronchiolitis, unspecified (principal); E87.6 Hypokalemia; D50.9 Iron deficiency anemia, unspecified